=== PATIENT | female | born 1990 | race Caucasian/White ===

== ENCOUNTER 2016-12-15 13:19 | Emergency (ER) | payer SELFPAY ==
[~2016-12-15] VITALS: Ht 170.2 cm; Wt 59.0 kg
[~2016-12-15 13:19] MED LIST: DEPO150I
[2016-12-15 13:26] VITALS: BP 114/74; PULSE 91; RESP 16; O2SAT 100
[2016-12-15] MEDS ORDERED: IBUPROFEN 600 MG TAB PO ONE (13:45)
--- NOTE | 2016-12-15 15:01 | RADRPT ---
EXAM DATE/TIME: 12/15/2016 14:17 [facility] COMPARISON: No previous studies available for comparison. INDICATIONS : Fell through porch today. MEDICAL HISTORY : None. SURGICAL HISTORY : None. ENCOUNTER: Initial ACUITY: 1 day PAIN SCORE: 4/10 LOCATION: pelvis FINDINGS: Single AP view of the pelvis. Bone alignment within normal limits. No evidence of fracture. CONCLUSION: No evidence of fracture. Missael Weinberg MD on December 15, 2016 at 14:59 Board Certified Radiologist. This report was verified electronically.
--- NOTE | 2016-12-15 15:02 | RADRPT ---
EXAM DATE/TIME: 12/15/2016 14:19 [facility] COMPARISON: No previous studies available for comparison. INDICATIONS : Fell through porch today. MEDICAL HISTORY : None. SURGICAL HISTORY : None. ENCOUNTER: Initial ACUITY: 1 day PAIN SCORE: 0/10 LOCATION: Bilateral chest FINDINGS: Single AP view of the chest. The lungs are clear. Cardiomediastinal silhouette within normal limits. No evidence of pleural effusion or pneumothorax. CONCLUSION: No acute cardiopulmonary disease identified. Missael Weinberg MD on December 15, 2016 at 15:00 Board Certified Radiologist. This report was verified electronically.
--- NOTE | 2016-12-15 15:03 | RADRPT ---
EXAM DATE/TIME: 12/15/2016 14:20 [facility] COMPARISON: No previous studies available for comparison. INDICATIONS : Fell through porch today. MEDICAL HISTORY : None. SURGICAL HISTORY : None. ENCOUNTER: Initial ACUITY: 1 day PAIN SCORE: 5/10 LOCATION: Right wrist FINDINGS: 3 views right wrist. Linear lucency through the scaphoid waist suspicious for scaphoid fracture. No o ther fracture identified. Alignment within normal limits. CONCLUSION: Nondisplaced scaphoid waist fracture. Missael Weinberg MD on December 15, 2016 at 15:00 Board Certified Radiologist. This report was verified electronically.
--- NOTE | 2016-12-15 15:03 | RADRPT ---
EXAM DATE/TIME: 12/15/2016 14:22 [facility] COMPARISON: No previous studies available for comparison. INDICATIONS : Fell through porch today. MEDICAL HISTORY : None. SURGICAL HISTORY : None. ENCOUNTER: Initial ACUITY: 1 day PAIN SCORE: 3/10 LOCATION: Right distal Tib fib FINDINGS: 2 views right tibia and fibula. Bone alignment within normal limits. No evidence of fracture. CONCLUSION: No evidence of fracture. Missael Weinberg MD on December 15, 2016 at 15:01 Board Certified Radiologist. This report was verified electronically.
--- NOTE | 2016-12-15 15:05 | RADRPT ---
EXAM DATE/TIME: 12/15/2016 14:23 [facility] COMPARISON: No previous studies available for comparison. INDICATIONS : Fell through porch today. MEDICAL HISTORY : None. SURGICAL HISTORY : None. ENCOUNTER: Initial ACUITY: 1 day PAIN SCORE: 6/10 LOCATION: Right lateral ankle FINDINGS: 3 views right ankle. Comminuted fracture of the posterior process and central calcaneus with involvem ent of the posterior facet subtalar joint. Widening of the posterior subtalar joint noted. CONCLUSION: Comminuted calcaneus fracture. Missael Weinberg MD on December 15, 2016 at 15:02 Board Certified Radiologist. This report was verified electronically.
--- NOTE | 2016-12-15 15:06 | RADRPT ---
EXAM DATE/TIME: 12/15/2016 14:31 [facility] COMPARISON: No previous studies available for comparison. INDICATIONS : Trauma, fall ten feet from [facility] today. RADIATION DOSE: 36.34 CTDIvol (mGy) MEDICAL HISTORY : None SURGICAL HISTORY : None. ENCOUNTER: Initial ACUITY: 1 day PAIN SCALE: 5/10 LOCATION: Bilateral head TECHNIQUE: Multiple contiguous axial images were obtained of the head. Using automated exposure control and adj ustment of the mA and/or kV according to patient size, radiation dose was kept as low as reasonably a chievable to obtain optimal diagnostic quality images. DICOM format image data is available electro nically for review and comparison. FINDINGS: CEREBRUM: The ventricles are normal for age. No evidence of midline shift, mass lesion, hemorrhage or acute in farction. No extra-axial fluid collections are seen. POSTERIOR FOSSA: The cerebellum and brainstem are intact. The 4th ventricle is midline. The cerebellopontine angle i s unremarkable. EXTRACRANIAL: The visualized portion of the orbits is intact. SKULL: The calvaria is intact. No evidence of skull fracture. CONCLUSION: No acute intracranial findings. Missael Weinberg MD on December 15, 2016 at 15:03 Board Certified Radiologist. This report was verified electronically.
--- NOTE | 2016-12-15 15:09 | RADRPT ---
EXAM DATE/TIME: 12/15/2016 14:31 [facility] COMPARISON: No previous studies available for comparison. INDICATIONS : Trauma, fall ten feet from [facility] today. RADIATION DOSE: 29.05 CTDIvol (mGy) MEDICAL HISTORY : None SURGICAL HISTORY : None. ENCOUNTER: Initial ACUITY: 1 day PAIN SCALE: 7/10 LOCATION: Bilateral neck TECHNIQUE: Volumetric scanning of the cervical spine was performed. Multiplanar reconstructions in the sagittal, coronal and oblique axial planes were performed. Using automated exposure control and adjustment o f the mA and/or kV according to patient size, radiation dose was kept as low as reasonably achievable to obtain optimal diagnostic quality images. DICOM format image data is available electronically f or review and comparison. FINDINGS: VERTEBRAE: Normal vertebral body height. ALIGNMENT: No evidence of subluxation. C2-C3: The bony spinal canal is normal in size. No evidence of disc bulge or herniation. The neural forami na are bilaterally patent. C3-C4: The bony spinal canal is normal in size. No evidence of disc bulge or herniation. The neural forami na are bilaterally patent. C4-C5: The bony spinal canal is normal in size. No evidence of disc bulge or herniation. The neural forami na are bilaterally patent. Mild left-sided facet arthrosis. C5-C6: The bony spinal canal is normal in size. No evidence of disc bulge or herniation. The neural forami na are bilaterally patent. C6-C7: The bony spinal canal is normal in size. No evidence of disc bulge or herniation. The neural forami na are bilaterally patent. C7-T1: The bony spinal canal is normal in size. No evidence of disc bulge or herniation. The neural forami na are bilaterally patent. CONCLUSION: No evidence of fracture. Missael Weinberg MD on December 15, 2016 at 15:04 Board Certified Radiologist. This report was verified electronically.
--- NOTE | 2016-12-15 16:15 | RADRPT ---
EXAM DATE/TIME: 12/15/2016 15:22 [facility] COMPARISON: No previous studies available for comparison. INDICATIONS : Lower back pain. Patient fell through a second story balcony MEDICAL HISTORY : None. SURGICAL HISTORY : None. ENCOUNTER: Initial ACUITY: 1 day PAIN SCORE: 10/10 LOCATION: Bilateral lower back. FINDINGS: 5 views lumbar spine. Bone alignment within normal limits. No evidence of fracture. Vertebral body h eight and shape within normal limits. CONCLUSION: No evidence of fracture. Missael Weinberg MD on December 15, 2016 at 16:13 Board Certified Radiologist. This report was verified electronically.
--- NOTE | 2016-12-15 16:16 | PD ---
HPI Chief Complaint: Musculoskeletal Complaint Time Seen by Provider: 13:32 Travel History International Travel<30 days: No Contact w/Intl Traveler<30days: No Traveled to known affect area: No History of Present Illness HPI Patient is a 26 year old female who comes in complaining of right wrist and right foot pain after falling from a porch above a garage. She was standing with 3 other people when it collapsed. She says she did not hit her head or lose consciousness. She says she hit her wrist on the way down and landed on her foot. She denies any back pain. She denies numbness or tingling. She does complain of some neck pain. [facility] Past Medical History Medical History: Denies Significant Hx Diminished Hearing: No Immunizations Current: Yes Tetanus Vaccination: < 5 Years ?: Not LMP: 12/15/16 Past Surgical History Surgical History: No Previous Surgery Social History Alcohol Use: No Tobacco Use: No Substance Use: No Allergies-Medications (Allergen,Severity, Reaction): Coded Allergies: No Known Allergies (Verified , 12/15/16) Reported Meds & Prescriptions Reported Meds & Active Scripts Active Reported Depo-Provera Contraceptive (Medroxyprogesterone Acetate) 150 Mg/Ml Susp Review of Systems Except as stated in HPI: all other systems reviewed are Neg General / Constitutional: No: Fever, Chills HENT: No: Headaches, Lightheadedness Cardiovascular: No: Chest Pain or Discomfort Respiratory: No: Shortness of Breath Gastrointestinal: No: Nausea, Vomiting, Abdominal Pain Musculoskeletal: Positive: Pain Skin: No Rash, No Change in Pigmentation Neurologic: No: Weakness, Dizziness, Syncope, Sensory Disturbance Physical Exam Narrative GENERAL: Awake and alert, in no acute distress. SKIN: Focused skin assessment warm/dry. HEAD: Atraumatic. Normocephalic. No winslow signs or raccoon eyes. EYES: Pupils equal and round. No scleral icterus. No injection or drainage. ENT: No nasal bleeding or discharge. Mucous membranes pink and moist. NECK: Trachea midline. No JVD. CARDIOVASCULAR: Regular rate and rhythm. No murmur appreciated. RESPIRATORY: No accessory muscle use. Clear to auscultation. Breath sounds equal bilaterally. GASTROINTESTINAL: Abdomen soft, non-tender, nondistended. MUSCULOSKELETAL: No obvious deformities. No clubbing. No cyanosis. No edema. tender to palpation of right heal as well as the lateral malleolus. Pedal pulses intact. Tender to palpation of the lateral side of the right wrist. Radial pulse intact. NEUROLOGICAL: Awake and alert. No obvious cranial nerve deficits. Motor grossly within normal limits. Normal speech. PSYCHIATRIC: Appropriate mood and affect; insight and judgment normal. Data Data Last Documented VS Vital Signs Date Time Temp Pulse Resp B/P (MAP) Pulse Ox O2 Delivery O2 Flow Rate FiO2 12/15/16 17:23 17 12/15/16 13:26 91 114/74 (87) [address] Brain W/O Iv Contrast(Rout) (12/15/16 ) Ct Cerv Spine W/O Contrast (12/15/16 ) Ed Urine Pregnancytest Poc (12/15/16 13:33) Chest, Single Ap (12/15/16 ) Pelvis, Ap Only (Routine) (12/15/16 ) Wrist, Complete ([id number]) (12/15/16 ) Ankle, Complete ([id number]) (12/15/16 ) Tibia/Fibula (Ap/Lat) (12/15/16 ) Ibuprofen (Motrin) (12/15/16 13:45) Spine, Lumbar Comp W/Obliq (12/15/16 ) Splint Or Brace Apply/Monitor (12/15/16 15:44) Ct Foot W/O Contrast (12/15/16 ) Oxycodone-Acetamin 5-325 Mg (Percocet (12/15/16 16:30) Ondansetron Odt (Zofran Odt) (12/15/16 16:30) Fiberglass Short Leg Splint Ad (12/15/16 ) Fiberglass Sugartong Sp Ad Sl (12/15/16 ) Fiberglass Thumb Spica Adult (12/15/16 ) MDM Medical Decision Making Medical Screen Exam Complete: Yes Emergency Medical Condition: Yes Differential Diagnosis Ankle fracture versus foot fracture versus wrist fracture versus sprain Narrative Course Patient is a 26-year-old female who comes in after a fall from a porch above her garage. She complains of neck pain, wrist pain for pain. CT of the Head and neck show no acute abnormalities. This x-ray shows no acute abnormalities. X-ray of the right tib-fib shows no acute abnormalities. CT of the ankle shows a calcaneal fracture. CT of the wrist shows a scaphoid fracture. Patient placed in a splint for her calcaneus fracture as well as her scaphoid fracture. Given pain medicine. I spoke with Dr. Williamson podiatry, who suggests obtaining a CT scan, making her nonweightbearing and having her follow-up in the office to have it fixed. I spoke with Dr. Jones of hand surgery who will see her in the office. Case management got her a wheelchair to use. Told to not put any weight on her foot or hand. Advised to follow up with both podiatry and hand surgery. Advised to return to the ED as needed for any worsening symptoms. Diagnosis Primary Impression: Scaphoid fracture Qualified Codes: S62.021A - Displaced fracture of middle third of navicular [ scaphoid] bone of right wrist, initial encounter for closed fracture Additional Impression: Calcaneal fracture Qualified Codes: S92.001A - Unspecified fracture of right calcaneus, initial encounter for closed fracture Referrals: Daniela Jones MD call for appointment Vianca Williamson DPM call for appointment Patient Instructions: Calcaneal Fracture (ED), General Instructions, Scaphoid Fracture (ED) Additional Instructions: Follow up with hand surgery and podiatry. Take pain medicine as needed. Do not put weight on your hand or foot. Return to the ED as needed for any worsening symptoms. Scripts Ondansetron Odt (Zofran Odt) 4 Mg Tab 4 MG SL Q6HR Y for Nausea/Vomiting, #15 TAB 0 Refills Prov: Elizabeth Dockery MD 12/15/16 Oxycodone-Acetaminophen (Percocet) 5-325 mg Tab 1 TAB PO Q6H Y for PAIN, #15 TAB 0 Refills Prov: Elizabeth Dockery MD 12/15/16 Disposition: 01 DISCHARGE HOME Condition: Stable Elizabeth Dockery MD Dec 15, 2016 16:16
[2016-12-15] MEDS ORDERED: oxyCODONE/ACETAMINOPHEN 5 MG/325 MG TAB PO ONE (16:30)
[2016-12-15] MEDS ORDERED: ONDANSETRON ODT 4 MG TAB PO ONE (16:30)
[2016-12-15 17:23] VITALS: RESP 17
--- NOTE | 2016-12-15 17:49 | RADRPT ---
EXAM DATE/TIME: 12/15/2016 17:06 [facility] COMPARISON: No previous studies available for comparison. INDICATIONS : Patient fell 10 feet RADIATION DOSE: 7.29 CTDIvol (mGy) MEDICAL HISTORY : None SURGICAL HISTORY : None. ENCOUNTER: Initial ACUITY: 1 day PAIN SCALE: 7/10 LOCATION: Right heel TECHNIQUE: Volumetric scanning of the foot was performed. Using automated exposure control and adjustment of th e mA and/or kV according to patient size, radiation dose was kept as low as reasonably achievable to obtain optimal diagnostic quality images. DICOM format image data is available electronically for re view and comparison. FINDINGS: Comminuted fracture of the calcaneus. The fracture involves the posterior process of the central calcaneus, and the anterior process. Fracture line extends into the posterior subtalar joint with wi dening of the posterior subtalar joint and 4 mm step off the anterior aspect of the posterior facet c ortex. Fracture also extends into the middle facet of the subtalar joint. No evidence of involvement of the calcaneocuboid joint. Fracture involves the base of the sustentaculum talus. There is mild lat eral displacement of the peroneal tendons but no evidence of entrapment of the tendons. CONCLUSION: Comminuted calcaneus fracture with involvement of the posterior subtalar joint and de pression of the posterior facet articular cortex. Widening of the posterior subtalar joint noted. Missael Weinberg MD on December 15, 2016 at 17:43 Board Certified Radiologist. This report was verified electronically.
[2016-12-15] MEDS ORDERED: ZOFR4TAB3 SL (17:50)
[2016-12-15] MEDS ORDERED: PERC5TAB12 PO (17:50)
[2016-12-15] MEDS ORDERED: MORPHINE SULFATE 4 MG/ML INJ IM ONE (18:00)
== END 2016-12-16 03:14 | disposition home or self-care (01) ==
LOC: NEPC 13:19 → NEPD 12-16 03:14
DX: S62.001A Unspecified fracture of navicular [scaphoid] bone of right wrist, initial encounter for closed fracture (principal); S92.001A Unspecified fracture of right calcaneus, initial encounter for closed fracture; M54.2 Cervicalgia; W17.89XA Other fall from one level to another, initial encounter; Y92.59 Other trade areas as the place of occurrence of the external cause; Z79.3 Long term (current) use of hormonal contraceptives
CPT/HCPCS: 29515; 70450; 71010; 72110; 72125; 72170; 73110; 73590; 73610; 73700; 84703; 96372; 99285; J2270; L3808